=== PATIENT | male | born 1955 | race Caucasian/White ===

== ENCOUNTER 2020-05-30 13:20 | Observation (INO) | payer BC ==
[~2020-05-30 13:20] MED LIST: Sodium Chloride 0.9% 10 ML Syringe FLUSH PRN
[2020-05-30] MEDS ORDERED: Lactated Ringers 1,000 ML IV ONE (13:22)
[2020-05-30] MEDS ORDERED: HYDROmorphone 2 MG/ML SDV IVPUSH ONE (15:38)
[2020-05-30] MEDS ORDERED: HYDROmorphone 2 MG/ML SDV IVPUSH PRN (16:10)
[2020-05-30] MEDS ORDERED: Midazolam 1 MG/ML 2 ML SDV IV ONE (16:18)
[2020-05-30] MEDS ORDERED: Glycopyrrolate 0.2 MG/ML 5 ML MDV IV ONE (16:18)
[2020-05-30] MEDS ORDERED: fentaNYL 100 MCG/2 ML SDV IV ONE (16:18)
[2020-05-30] MEDS ORDERED: HYDROmorphone 2 MG/ML SDV IV ONE (16:18)
[2020-05-30] MEDS ORDERED: Ketorolac 30 MG/ML SDV IVPUSH ONE (16:18)
[2020-05-30] MEDS: Lactated Ringers 1,000 ML IV SCH ×2 (16:20→18:54)
[2020-05-30] MEDS ORDERED: Propofol 200 MG/20 ML SDV IV ONE (16:30)
[2020-05-30] MEDS ORDERED: Ondansetron 4 MG/2 ML SDV IVPUSH ONE (16:30)
[2020-05-30] MEDS ORDERED: Rocuronium 50 MG/5 ML Vial IV ONE (16:30)
[2020-05-30] MEDS ORDERED: Neostigmine Methylsulfate 10 MG/10 ML MDV IVPUSH ONE (16:30)
[2020-05-30] MEDS ORDERED: cefOXitin 2 GM Vial IVPUSH ONE (17:00)
[2020-05-30] MEDS ORDERED: Lidocaine 1% with EPINEPHrine 1:100,000 20 ML MDV INJECT ONE (17:21)
[2020-05-30] MEDS ORDERED: Bupivacaine 0.5% 30 ML SDV INJECT ONE (17:21)
--- NOTE | 2020-05-30 18:34 | PCM.OPNOTE ---
- General Post-Op/Procedure Note Date of Surgery/Procedure: 05/30/20 Operative Procedure(s): lap appendectomy Findings: suppurative appendix inflamed epiploica Pre Op Diagnosis: acute appendicitis with localized peritonitis Post-Op Diagnosis: Same Anesthesia Technique: General ET Tube, Local (8 ml 1 % lido with epi/0.5% buvipicaine) Primary Surgeon: Pio Durand Anesthesia Provider: Beck Harris Pathology: appendix and epiploica Complications: None Condition: Good Free Text/Narrative:: Intake & Output 05/30/20 05/30/20 05/30/20 06:59 14:59 22:59 Intake Total 1080 Balance 1080 see anesthesia for intraop fluid see dictation #[id number]
[2020-05-30] MEDS ORDERED: Ondansetron 4 MG/2 ML SDV IVPUSH PRN (18:39)
[2020-05-30] MEDS ORDERED: Ketorolac 30 MG/ML SDV IVPUSH SCH (18:39)
[2020-05-30] MEDS ORDERED: cefOXitin 2 GM Vial ONE (20:11)
[2020-05-30] MEDS: HYDROmorphone 2 MG/ML SDV IVPUSH PRN (22:50)
[2020-05-30] MEDS: cefOXitin 2 GM in Sodium Chloride 0.9% 50 ML IV SCH (22:53)
[2020-05-31] MEDS: Ketorolac 30 MG/ML SDV IVPUSH SCH ×3 (01:03→18:25)
[2020-05-31] MEDS: Lactated Ringers 1,000 ML IV SCH ×3 (02:51→19:43)
[2020-05-31] MEDS: HYDROmorphone 2 MG/ML SDV IVPUSH PRN ×4 (02:58→23:59)
[2020-05-31] MEDS: cefOXitin 2 GM in Sodium Chloride 0.9% 50 ML IV SCH (05:01)
--- NOTE | 2020-05-31 07:15 | OR ---
DATE OF OPERATION: 05/30/2020 SURGEON: Pio Durand MD PROCEDURE PERFORMED: Laparoscopic appendectomy. PREOPERATIVE DIAGNOSES: Acute appendicitis, localized peritonitis. POSTOPERATIVE DIAGNOSES: Acute appendicitis, localized peritonitis. PROCEDURE PERFORMED: Laparoscopic appendectomy. INDICATIONS FOR PROCEDURE: This is a 65-year-old white male who developed some periumbilical abdominal pain on . Over the weekend, the pain has gotten progressively worse and localized into the right lower quadrant. Presented to the clinic this morning with a complaint of abdominal pain which was worse with movement. Subsequent workup confirmed the diagnosis of acute appendicitis and the patient was offered and accepted a laparoscopic appendectomy. INTRAOPERATIVE FINDINGS: 1. 8 mL of 1:1 mixture of 1% lidocaine with epinephrine, 0.5% bupivacaine was used to infiltrate our port sites. 2. A suppurative appendix without rupture was noted and there was adherent to the appendix rather inflamed and necrotic-appearing epiploic appendices as well, which was removed. DESCRIPTION OF OPERATION: After an excellent general anesthetic was administered via endotracheal tube, the patient was prepped and draped in usual sterile manner. Our local was used to infiltrate the tissue just below the umbilicus in the midline. A small vertical midline incision was carried out with a #15 scalpel blade. Blunt dissection was performed exposing the midline fascia. Two stay sutures were placed on either side of the midline and an incision was made through the midline into the abdominal cavity. This was developed with careful blunt dissection, and after digital palpation to ensure no adhesions, a 10.5 mm balloon Lisa trocar was inserted into the patient's abdomen. The patient's abdomen was then insufflated to 15 mmHg using carbon dioxide. Under direct visualization, a 5 mm port was placed in the right lower quadrant at the proximal level of the anterior axillary line and one was placed in the midline below the periumbilical incision. This was performed using the following technique. The area was infiltrated with our local mixture. A stab incision was made through the skin and then the trocars were inserted. The patient was placed in reverse Trendelenburg with an airplane to the left. Markedly inflamed area was noted in the right lower quadrant. With careful blunt dissection, we were able to dissect free 2 cylindrical structures, one which would obviously be appendix and one which was much shorter and appeared to be consistent with an inflamed epiploica. The epiploica did have a small adhesion to the terminal ileum. This was carefully taken down with the Parisa dissector and a clip was placed proximally and one distally prior to transecting it with the scissors. The base of the epiploica was then carefully dissected free and 2 clips were placed proximally at the base and 1 distally after dividing it at the structure into half with our Parisa and then transected. This was delivered into a specimen bag and delivered free of the abdominal cavity. Our attention was then turned to the appendix. Careful dissection was carried out slowly freeing the appendix from the surrounding intestine. This was done very carefully until we were able to expose a shortened mesoappendix. After dissecting this free from the main appendiceal body, there was a slight amount of bleeding which was controlled with judicious placement of clips. An Endo-KO 45 mm load with 2.5 mm vascular load was then transected across the base of the mesoappendix. This allowed us to free up the base of the appendix at the base of the cecum. Again using Endo-KO, an identical load was then fired across the base of the appendix and the specimen where the appendix met the cecum. The specimen was passed into a specimen bag and delivered out through the periumbilical port. The area was irrigated with 2 L of clear liquid, and after ensuring excellent hemostasis, pneumoperitoneum was released and the patient was flattened out. The midline fascia in the periumbilical area was closed with [id number] 0 Vicryl, and mag were used to close the skin. Needle, sponge, and instrument counts were reported as correct. The patient was taken to recovery room in good condition. Please see the anesthesia report for intraoperative fluids. /[id number] /MODL
[2020-05-31] MEDS ORDERED: Lactated Ringers 1,000 ML IV ONE (09:29)
--- NOTE | 2020-05-31 09:29 | PCM.SURGPN ---
- General Info Date of Service: 05/31/20 POD#: 1 Functional Status: Reports: Ambulating, Urinating (did have some retention. required a knight. ) - Review of Systems General: Reports: Fever (one episode post op has remained afebrile. ) Gastrointestinal: Reports: Vomiting (one episode of emesis. is feeling better. ) Genitourinary: Reports: Retention Skin: Reports: No Symptoms - Patient Data Vitals - Most Recent: Last Vital Signs Temp 98.3 F 05/31/20 07:30 Pulse 89 05/31/20 07:30 Resp 20 05/31/20 07:30 BP 112/61 05/31/20 07:30 Pulse Ox 90 L 05/31/20 07:30 Weight - Most Recent: 113.3 kg I&O - Last 24 Hours: Intake & Output 05/30/20 05/31/20 05/31/20 22:59 06:59 14:59 Intake Total 2592 2865 Output Total 0 265 Balance 2592 2600 Lab Results Last 24 Hrs: Laboratory Results - last 24 hr 05/30/20 05/31/20 Range/Units 14:05 05:55 WBC 9.9 (3.2-10.1) x10-3/uL RBC 3.20 L (3.90-5.90) x10(6)uL Hgb 11.8 L (12.9-17.7) g/dL Hct 34.5 L (38.3-50.1) % MCV 107.7 H (80.8-98.7) fL MCH 36.7 H (27.0-33.3) pg MCHC 34.1 (28.7-35.3) g/dL RDW 12.7 (12.4-15.0) % Plt Count 192 (117-477) x10(3)uL MPV 6.9 (6.7-11.0) fL Neut % (Auto) 82.1 H (40.3-71.8) % Lymph % (Auto) 14.1 L (15.8-45.3) % [place] % (Auto) 3.3 L (5.5-15.2) % Eos % (Auto) 0.1 (0.1-6.8) % Baso % (Auto) 0.4 (0.3-3.8) % Neut # (Auto) 8.1 H (1.7-6.9) x10-3/uL Lymph # (Auto) 1.4 (0.5-4.5) x10-3/uL [place] # (Auto) 0.3 (0.0-1.2) x10-3/uL Eos # (Auto) 0.0 (0.0-0.6) x10-3/uL Baso # (Auto) 0.0 (0.0-0.3) x10-3/uL SARS-CoV-2 RNA (SEVERO) Negative (NEGATIVE) Med Orders - Current: Current Medications Cefoxitin Sodium (Mefoxin) 2 gm IVPUSH Q6H [facility] Hydromorphone HCl (Dilaudid) 1 mg IVPUSH Q1H PRN PRN Reason: Pain (moderate 4-6) Last Admin: 05/31/20 05:49 Dose: 1 mg Documented by: Lactated Ringer's (Ringers, Lactated) 1,000 mls @ 125 mls/hr IV ASDIRECTED [facility] Last Admin: 05/31/20 02:51 Dose: 125 mls/hr Documented by: Ketorolac Tromethamine (Toradol) 30 mg IVPUSH Q8H [facility] Last Admin: 05/31/20 08:51 Dose: 30 mg Documented by: Ondansetron HCl (Zofran) 4 mg IVPUSH Q6H PRN PRN Reason: Nausea/Vomiting Sodium Chloride (Saline Flush) 10 ml FLUSH ASDIRECTED PRN PRN Reason: Keep Vein Open Discontinued Medications Bupivacaine HCl (Marcaine 0.5%) 10 ml INJECT .STK-MED ONE Stop: 05/30/20 17:22 Last Admin: 05/30/20 17:21 Dose: 10 ml Documented by: Cefoxitin Sodium (Mefoxin) 2 gm IVPUSH ONETIME ONE Stop: 05/30/20 17:01 Last Admin: 05/30/20 16:55 Dose: 2 gm Documented by: Cefoxitin Sodium (Mefoxin) Confirm Administered Dose 2 gm .ROUTE .STK-MED ONE Stop: 05/30/20 20:12 Last Admin: 05/30/20 20:52 Dose: Not Given Documented by: Hydromorphone HCl (Dilaudid) 1 mg IVPUSH ONETIME ONE Stop: 05/30/20 15:39 Last Admin: 05/30/20 15:52 Dose: 1 mg Documented by: Hydromorphone HCl (Dilaudid) 1 mg IVPUSH ONETIME PRN PRN Reason: Pain Last Admin: 05/30/20 16:38 Dose: 1 mg Documented by: Lactated Ringer's (Ringers, Lactated) 1,000 mls @ 999 mls/hr IV BOLUS ONE Stop: 05/30/20 14:22 Last Admin: 05/30/20 15:20 Dose: 999 mls/hr Documented by: Cefoxitin Sodium 2 gm/ Sodium (Chloride) 50 mls @ 100 mls/hr IV Q6H [facility] Last Admin: 05/31/20 05:01 Dose: 100 mls/hr Documented by: Ketorolac Tromethamine (Toradol) 30 mg IVPUSH Q8H [facility] Stop: 06/04/20 18:24 Last Admin: 05/30/20 19:58 Dose: Not Given Documented by: Lidocaine/Epinephrine (Xylocaine 1% With Epinephrine 1:100,000) 10 ml INJECT .STK-MED ONE Stop: 05/30/20 17:22 Last Admin: 05/30/20 17:21 Dose: 10 ml Documented by: - Exam Wound/Incisions: Dressing Dry and Intact Lungs: Clear to Auscultation, Normal Respiratory Effort Cardiovascular: Regular Rate, Regular Rhythm GI/Abdominal Exam: Normal Bowel Sounds, Soft, Tender (over incisions ) Skin: Warm, Dry, Intact Sepsis Event Note - Evaluation Sepsis Screening Result: No Definite Risk - Focused Exam Vital Signs: Vital Signs Temp Pulse Resp BP Pulse Ox 05/31/20 07:30 98.3 F 89 20 112/61 90 L 05/31/20 05:00 97.9 F 92 16 104/62 93 L 05/31/20 02:13 98.3 F 92 16 95 05/31/20 02:11 101.3 F H 110 H 16 112/60 90 L 05/30/20 23:53 92 14 112/66 93 L 05/30/20 23:07 99.0 F 92 16 115/50 L 95 05/30/20 22:19 85 16 97/62 95 05/30/20 21:30 80 14 104/58 L 95 - Problem List & Annotations (1) Acute appendicitis with localized peritonitis SNOMED Code(s): 064885991 Code(s): K35.30 - ACUTE APPENDICITIS WITH LOC PERITONITIS, W/O PERF OR GANGR Status: Acute Current Visit: Yes Qualifiers: Appendicitis gangrene presence: unspecified whether gangrene present Appendicitis perforation presence: without perforation Appendicitis abscess presence: without abscess Qualified Code(s): K35.30 - Acute appendicitis with localized peritonitis, without perforation or gangrene (2) Postoperative urinary retention SNOMED Code(s): 211319242 Code(s): N99.89 - OTH POSTPROCEDURAL COMPLICATIONS AND DISORDERS OF SYS; R33.8 - OTHER RETENTION OF URINE Status: Acute Current Visit: Yes - Problem List Review Problem List Initiated/Reviewed/Updated: Yes - My Orders Last 24 Hours: Active Orders 24 hr Category Date Time Status Patient Status [ADT] Routine ADT 05/30/20 13:17 Ordered Ambulate [RC] .TID Care 05/30/20 18:39 Active Head of Bed Elevation [RC] ASDIRECTED Care 05/30/20 18:39 Active Intake and Output [RC] 06,14,22 Care 05/30/20 18:39 Active Notify Provider Intake and Out [RC] PRN Care 05/30/20 18:39 Active Notify Provider Vital Signs [RC] PRN Care 05/30/20 18:39 Active RT Incentive Spirometry [RC] Q2HWA Care 05/30/20 18:39 Active Supplemental O2 [Oxygen Therapy] [RC] ASDIRECTED Care 05/30/20 15:40 Active Urinary Catheter Assessment [RC] QSHIFT Care 05/31/20 01:28 Active Urinary Catheter Insertion [Insert Urinary Catheter] [ Care 05/31/20 01:30 Ordered OM.PC] Q24H Vital Signs [RC] 08,12,16,20,00,04 Care 05/30/20 18:39 Active Clear Liquid Diet [DIET] Diet 05/30/20 Dinner Ordered Nothing Per Oral Diet [DIET] Diet 05/30/20 Lunch Ordered HYDROmorphone [Dilaudid] Med 05/30/20 18:39 Active 1 mg IVPUSH Q1H PRN Ketorolac [Toradol] Med 05/31/20 01:00 Active 30 mg IVPUSH Q8H Lactated Ringers [Ringers, Lactated] 1,000 ml Med 05/30/20 13:30 Active IV ASDIRECTED Ondansetron [Zofran] Med 05/30/20 18:39 Active 4 mg IVPUSH Q6H PRN Sodium Chloride 0.9% [Saline Flush] Med 05/30/20 13:18 Active 10 ml FLUSH ASDIRECTED PRN cefOXitin [Mefoxin] Med 05/31/20 11:00 Active 2 gm IVPUSH Q6H Peripheral IV Insertion Adult [OM.PC] Routine Oth 05/30/20 13:18 Ordered Sequential Compression Device [OM.PC] Routine Oth 05/30/20 13:18 Ordered Resuscitation Status Routine Resus Stat 05/30/20 13:18 Ordered Medication Orders Cefoxitin Sodium (Mefoxin) 2 gm IVPUSH Q6H [facility] Hydromorphone HCl (Dilaudid) 1 mg IVPUSH Q1H PRN PRN Reason: Pain (moderate 4-6) Last Admin: 05/31/20 05:49 Dose: 1 mg Documented by: Admin: 05/31/20 02:58 Dose: 1 mg Documented by: Admin: 05/30/20 22:50 Dose: 1 mg Documented by: JULIANNE Lactated Ringer's (Ringers, Lactated) 1,000 mls @ 125 mls/hr IV ASDIRECTED [facility] Last Admin: 05/31/20 02:51 Dose: 125 mls/hr Documented by: Infusion: 05/31/20 02:51 Dose: 125 mls/hr Documented by: Admin: 05/30/20 18:54 Dose: 125 mls/hr Documented by: Infusion: 05/30/20 18:54 Dose: 125 mls/hr Documented by: Admin: 05/30/20 16:20 Dose: 125 mls/hr Documented by: CHANA Ketorolac Tromethamine (Toradol) 30 mg IVPUSH Q8H [facility] Last Admin: 05/31/20 08:51 Dose: 30 mg Documented by: Admin: 05/31/20 01:03 Dose: 30 mg Documented by: JULIANNE Ondansetron HCl (Zofran) 4 mg IVPUSH Q6H PRN PRN Reason: Nausea/Vomiting Sodium Chloride (Saline Flush) 10 ml FLUSH ASDIRECTED PRN PRN Reason: Keep Vein Open - Assessment Assessment (Free Text/Narrative):: WBC is normalized. One episode of fever but has remained afebrile. Clinically his urine appears be dark. Did take a fair amount of tylenol preop. Will check a CMP today. bolus as well. urinary retention knight will be kept in. emesis. will continue to allow clears, monitor during the day. - Plan Plan (Free Text/Narrative):: see above.
[2020-05-31] MEDS: cefOXitin 2 GM Vial IVPUSH SCH ×3 (10:45→22:54)
[2020-05-31] MEDS ORDERED: Bisacodyl 10 MG Supp RECTAL ONE (14:43)
--- NOTE | 2020-05-31 17:31 | PCM.SN.2 ---
- Free Text/Narrative Note: Urine output is better. diluting. Did have some flatus with the suppository. feeling better. will continue clears this pm.
[2020-06-01] MEDS: Ketorolac 30 MG/ML SDV IVPUSH SCH ×2 (00:44→08:46)
[2020-06-01] MEDS: Lactated Ringers 1,000 ML IV SCH (03:47)
[2020-06-01] MEDS: cefOXitin 2 GM Vial IVPUSH SCH (04:31)
[2020-06-01] MEDS: HYDROmorphone 2 MG/ML SDV IVPUSH PRN (07:55)
--- NOTE | 2020-06-01 08:48 | PCM.SURGPN ---
- General Info Date of Service: 06/01/20 POD#: 2 Functional Status: Reports: Pain Controlled, Tolerating Diet, Ambulating, Urinating (with knight out ) - Review of Systems Pulmonary: Reports: Cough Cardiovascular: Reports: No Symptoms Gastrointestinal: Reports: Abdominal Pain, Flatus Genitourinary: Denies: Retention - Patient Data Vitals - Most Recent: Last Vital Signs Temp 98.0 F 06/01/20 07:35 Pulse 80 06/01/20 07:35 Resp 20 06/01/20 07:35 BP 119/63 06/01/20 07:35 Pulse Ox 94 L 06/01/20 07:35 Weight - Most Recent: 113.3 kg I&O - Last 24 Hours: Intake & Output 05/31/20 06/01/20 06/01/20 22:59 06:59 14:59 Intake Total 1464 1236 400 Output Total 625 575 100 Balance 839 661 300 Lab Results Last 24 Hrs: Laboratory Results - last 24 hr 05/31/20 05/31/20 Range/Units 05:55 05:55 Sodium 135 (135-145) mmol/L Potassium 4.4 (3.5-5.3) mmol/L Chloride 98 L (100-110) mmol/L Carbon Dioxide 26 (21-32) mmol/L BUN 24 H (7-18) mg/dL Creatinine 1.5 H (0.70-1.30) mg/dL Est Cr Clr Drug Dosing 79.73 mL/min Estimated GFR (MDRD) 47 L (>60) BUN/Creatinine Ratio 16.0 (9-20) Glucose 92 (80-116) mg/dL Calcium 8.4 L (8.6-10.2) mg/dL Total Bilirubin 1.4 H 1.4 H (0.1-1.3) mg/dL Direct Bilirubin 0.67 H (0.10-0.20) mg/dL Indirect Bilirubin 0.7 (0.0-1.0) mg/dL AST 19 (5-25) IU/L ALT 37 H (12-36) U/L Alkaline Phosphatase 69 (56-112) IU/L Total Protein 6.6 (6.0-8.0) g/dL Albumin 3.0 L (3.2-4.6) g/dL Globulin 3.6 g/dL Albumin/Globulin Ratio 0.8 Med Orders - Current: Current Medications Celecoxib (Celebrex) 200 mg PO BID [facility] Ondansetron HCl (Zofran) 4 mg IVPUSH Q6H PRN PRN Reason: Nausea/Vomiting Sodium Chloride (Saline Flush) 10 ml FLUSH ASDIRECTED PRN PRN Reason: Keep Vein Open Discontinued Medications Bisacodyl (Dulcolax) 10 mg RECTAL ONETIME ONE Stop: 05/31/20 14:44 Last Admin: 05/31/20 15:30 Dose: 10 mg Documented by: Bupivacaine HCl (Marcaine 0.5%) 10 ml INJECT .STK-MED ONE Stop: 05/30/20 17:22 Last Admin: 05/30/20 17:21 Dose: 10 ml Documented by: Cefoxitin Sodium (Mefoxin) 2 gm IVPUSH ONETIME ONE Stop: 05/30/20 17:01 Last Admin: 05/30/20 16:55 Dose: 2 gm Documented by: Cefoxitin Sodium (Mefoxin) Confirm Administered Dose 2 gm .ROUTE .STK-MED ONE Stop: 05/30/20 20:12 Last Admin: 05/30/20 20:52 Dose: Not Given Documented by: Cefoxitin Sodium (Mefoxin) 2 gm IVPUSH Q6H [facility] Last Admin: 06/01/20 04:31 Dose: 2 gm Documented by: Hydromorphone HCl (Dilaudid) 1 mg IVPUSH ONETIME ONE Stop: 05/30/20 15:39 Last Admin: 05/30/20 15:52 Dose: 1 mg Documented by: Hydromorphone HCl (Dilaudid) 1 mg IVPUSH ONETIME PRN PRN Reason: Pain Last Admin: 05/30/20 16:38 Dose: 1 mg Documented by: Hydromorphone HCl (Dilaudid) 1 mg IVPUSH Q1H PRN PRN Reason: Pain (moderate 4-6) Last Admin: 06/01/20 07:55 Dose: 1 mg Documented by: Lactated Ringer's (Ringers, Lactated) 1,000 mls @ 125 mls/hr IV ASDIRECTED [facility] Last Admin: 06/01/20 03:47 Dose: 125 mls/hr Documented by: Lactated Ringer's (Ringers, Lactated) 1,000 mls @ 999 mls/hr IV BOLUS ONE Stop: 05/30/20 14:22 Last Admin: 05/30/20 15:20 Dose: 999 mls/hr Documented by: Cefoxitin Sodium 2 gm/ Sodium (Chloride) 50 mls @ 100 mls/hr IV Q6H [facility] Last Admin: 05/31/20 05:01 Dose: 100 mls/hr Documented by: Lactated Ringer's (Ringers, Lactated) 1,000 mls @ 999 mls/hr IV BOLUS ONE Stop: 05/31/20 10:29 Last Admin: 05/31/20 10:38 Dose: 999 mls/hr Documented by: Ketorolac Tromethamine (Toradol) 30 mg IVPUSH Q8H [facility] Stop: 06/04/20 18:24 Last Admin: 05/30/20 19:58 Dose: Not Given Documented by: Ketorolac Tromethamine (Toradol) 30 mg IVPUSH Q8H [facility] Last Admin: 06/01/20 00:44 Dose: 30 mg Documented by: Lidocaine/Epinephrine (Xylocaine 1% With Epinephrine 1:100,000) 10 ml INJECT .STK-MED ONE Stop: 05/30/20 17:22 Last Admin: 05/30/20 17:21 Dose: 10 ml Documented by: - Exam Wound/Incisions: Healing Well, No Drainage Lungs: Clear to Auscultation, Normal Respiratory Effort Cardiovascular: Regular Rate, Regular Rhythm GI/Abdominal Exam: Normal Bowel Sounds, Soft, Tender (at trochar sites) Skin: Warm, Dry, Intact Psy/Mental Status: Alert, Normal Affect, Normal Mood Sepsis Event Note - Evaluation Sepsis Screening Result: No Definite Risk - Focused Exam Vital Signs: Vital Signs Temp Pulse Resp BP Pulse Ox 06/01/20 07:35 98.0 F 80 20 119/63 94 L 06/01/20 04:00 97.5 F 86 16 110/60 90 L 06/01/20 00:00 98.3 F 88 16 118/65 88 L - Problem List & Annotations (1) Acute appendicitis with localized peritonitis SNOMED Code(s): 484684299 Code(s): K35.30 - ACUTE APPENDICITIS WITH LOC PERITONITIS, W/O PERF OR GANGR Status: Acute Current Visit: Yes Qualifiers: Appendicitis gangrene presence: unspecified whether gangrene present Appendicitis perforation presence: without perforation Appendicitis abscess presence: without abscess Qualified Code(s): K35.30 - Acute appendicitis with localized peritonitis, without perforation or gangrene (2) Postoperative urinary retention SNOMED Code(s): 672063527 Code(s): N99.89 - OTH POSTPROCEDURAL COMPLICATIONS AND DISORDERS OF SYS; R33.8 - OTHER RETENTION OF URINE Status: Resolved Current Visit: Yes - Problem List Review Problem List Initiated/Reviewed/Updated: Yes - My Orders Last 24 Hours: Active Orders 24 hr Category Date Time Status Admission Status [Patient Status] [ADT] Routine ADT 05/31/20 14:43 Active Regular Diet [DIET] Diet 06/01/20 Breakfast Ordered CBC WITH AUTO DIFF [HEME] Routine Lab 06/01/20 08:46 Ordered COMPREHENSIVE METABOLIC PN,CMP [CHEM] Routine Lab 06/01/20 08:46 Ordered Celecoxib [CeleBREX] Med 06/01/20 09:00 Ordered 200 mg PO BID Convert IV to Saline Lock [OM.PC] Routine Oth 06/01/20 08:44 Ordered Medication Orders Celecoxib (Celebrex) 200 mg PO BID [facility] Ondansetron HCl (Zofran) 4 mg IVPUSH Q6H PRN PRN Reason: Nausea/Vomiting Sodium Chloride (Saline Flush) 10 ml FLUSH ASDIRECTED PRN PRN Reason: Keep Vein Open - Assessment Assessment (Free Text/Narrative):: improved exam - Plan Plan (Free Text/Narrative):: advance diet will recheck labs this am. saline lock iv.
[2020-06-01] MEDS ORDERED: Celecoxib 200 MG Cap PO SCH (09:00)
--- NOTE | 2020-06-01 10:40 | PCM.SN.2 ---
- Free Text/Narrative Note: Pt tolerated breakfast. LFT's have normalized. WBC continues to be normal will discharge. no need for antibiotics.
== END 2020-06-01 11:45 | disposition home or self-care (01) ==
LOC: FB.SDS 13:20 → FB.MS 13:22 → FB.SDS 05-31 14:49 → FB.MS 05-31 14:50 → UNDOADMOB 05-31 14:50 → UNDODISOB 06-01 11:45
PROVIDERS: ADMIT Surgery; ATTEND Surgery
DX: K35.30 Acute appendicitis with localized peritonitis, without perforation or gangrene (principal); Z01.812 Encounter for preprocedural laboratory examination; Z20.828 Contact with and (suspected) exposure to other viral communicable diseases; Z98.890 Other specified postprocedural states
CPT/HCPCS: 00790-QZ; 36415; 51702; 80053; 82247; 82248; 85025; 96374; 96375; 96376; A9270-GY; G0378; J0694; J1170; J1885; J2250; J2405; J2704; J2710; J3010; J3490; J7120; U0002